=== PATIENT | male | born 1970 | race Caucasian/White ===

== ENCOUNTER 2016-10-17 01:49 | Emergency (ER) | payer BC ==
[2016-10-17] MEDS ORDERED: PERCOCET 5-3251 EACH PO (03:23)
== END 2016-10-17 03:32 ==
LOC: EDMED 01:49
DX: S39.012A Strain of muscle, fascia and tendon of lower back, initial encounter (principal); X50.0XXA Overexertion from strenuous movement or load, initial encounter
CPT/HCPCS: J1885; J2060

== ENCOUNTER 2016-10-19 01:27 | Inpatient (IN) | payer BC ==
[~2016-10-19 01:27] MED LIST: PERCOCET 5-3251 EACH PO
[2016-10-19] MEDS ORDERED: TYLENOL EXTRA500 M1 PO (01:41)
[2016-10-19] MEDS ORDERED: IBUPROFEN200 M2 PO (01:42)
[2016-10-19 02:39] LABS: BASO % 0.2 % (0-2); EOS % 1.2 % (0-7); EOSINOPHIL ABSOLUTE COUNT 0.1 tho/cmm (0.0-0.7); HCT-HEMATOCRIT 41.7 % (36.0-53.5); HGB-HEMOGLOBIN 14.7 gm/dl (13.5-17.0); IMMATURE GRANULOCYTES ABSOLUTE 0.01 tho/cmm (0-0.03); IMMATURE GRANULOCYTES PERCENT 0.1 % (0-0.3); LYMPH % 21.8 % (20-45); MCH (MEAN CORPUSCULAR HGB) 30.2 pg (28.0-32.0); MCHC MEAN CORPUSCULAR HGB CONC 35.3 % (32.0-36.0); MCV (MEAN CELL VOLUME) 85.8 fl (82.0-96.0); MEAN PLATELET VOLUME 10.5 cmc (9.4-12.4); MONO % 4.3 % (0-12); MONOCYTE ABSOLUTE COUNT 0.4 tho/cmm (0.0-1.2); NEUTROPHIL ABSOLUTE COUNT 6.5 tho/cmm (1.6-8.0); NEUTROPHIL-AUTOMATED 6.5 tho/cmm (1.6-8.0); NEUTROPHILS % 72.4 % (40-80); PLATELET COUNT 230 tho/cmm (150-450); RED BLOOD COUNT 4.86 mil/cmm (4.40-5.70); RED CELL DISTRIBUTION WIDTH 12.2 % (12.4-16.4)
[2016-10-19 02:48] LABS: ANION GAP 9 mmol/L (0-20); BLOOD UREA NITROGEN 15 mg/dl (6-24); CALCIUM 8.6 mg/dl (8.5-10.5); CARBON DIOXIDE-VENOUS 29 mmol/L (22-32); CHLORIDE 104 mmol/l (96-110); GLUCOSE 128 mg/dL (70-110); POTASSIUM 4.1 mmol/L (3.7-5.1); SODIUM 138 mmol/L (135-145); eGFR VALUE FOR BLACK >90 mL/Min
[2016-10-19 02:50] LABS: C-REACTIVE PROTEIN <0.3 mg/dl (0-0.9)
[2016-10-19 02:59] LABS: ESR-ERYTHROCYTE SED RATE 8 mm/hr (0-15)
[2016-10-19] MEDS ORDERED: PERCOCET 5-3251 EACH PO (04:17)
[2016-10-22] MEDS ORDERED: CYCLOBENZAPRINE5 M1 PO (10:58)
[2016-10-22] MEDS ORDERED: NORCO 5-325 TA1 EACH PO (10:59)
[2016-10-22] MEDS ORDERED: TYLENOL325 M2 PO (11:00)
[2016-10-22] MEDS ORDERED: SENOKOT-S TABL1 EACH PO (11:02)
[2016-10-22] MEDS ORDERED: DULCOLAX5 M1 PO (11:02)
[2016-10-22] MEDS ORDERED: FLOMAX0.4 M1 PO (11:04)
[2016-10-22] MEDS ORDERED: MEDROL4 M1 PO (11:04)
== END 2016-10-22 22:05 | DRG 519 ==
LOC: EDMED 01:27 → EMR2 08:50 → PACU 09:20 → 5EA 10:45
PROVIDERS: Emergency Medicine; ADMIT Family Medicine
PROC: 00NY0ZZ Release Lumbar Spinal Cord, Open Approach (ICD-10-PCS; principal; 2016-10-19)
PROC: 0ST20ZZ Resection of Lumbar Vertebral Disc, Open Approach (ICD-10-PCS; 2016-10-19)
DX: M51.06 Intervertebral disc disorders with myelopathy, lumbar region (principal); G83.4 Cauda equina syndrome
CPT/HCPCS: J0690; J1100; J1170; J1650; J2175; J7030